=== PATIENT | male | born 1985 | race Caucasian/White ===

== ENCOUNTER 2021-01-26 00:59 | Emergency (ER) | payer OTHER, SELFPAY ==
--- NOTE | ~2021-01-26 | CT_ITS ---
EXAMINATION: CT HEAD WITHOUT CONTRAST CLINICAL INFORMATION: Headache, speech difficulties COMPARISON: None TECHNIQUE: Contiguous axial imaging was performed from the skull base to vertex without intravenous administration of contrast. This CT examination was performed using dose optimization techniques as appropriate, variously including the following: *Automated exposure control *Adjustment of mA and/or kV according to patient size (this includes techniques or standardized protocols for targeted exams where dose is matched to indication/reason for exam; i.e. extremities or head) *Use of iterative reconstruction technique DLP: 630 mGy-cm FINDINGS: There is no evidence of acute intracranial hemorrhage or territorial infarction. No abnormal mass effect or midline shift is seen. Shea to white matter differentiation is well preserved. No extra-axial fluid collections are identified. The ventricles are normal in size. There is no abnormal attenuation within the brain parenchyma. The osseous structures and soft tissues are normal. Small mucous retention cyst suspected in the right maxillary sinus. The mastoid air cells are well-aerated. CT/CT head/brain wo con IMPRESSION: No acute intracranial pathology.
[2021-01-26 01:10] VITALS: BP 118/80; PULSE 73; RESP 16; TEMP 36.6; O2SAT 100; BMI 17.7
--- NOTE | 2021-01-26 01:20 | PC.NURSE ---
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 Awaiting primary MD land.
--- NOTE | 2021-01-26 02:12 | ED_ITS ---
HPI - Headache General Chief Complaint: Headache Stated Complaint: Headache Time Seen by Provider: 01/26/21 02:11 Source: patient Mode of arrival: ambulatory History of Present Illness HPI Narrative: This is a 35-year-old male who is coming in from home with reports neuro symptoms that started on at approximately 9:30 a.m. while at work. He states that he experienced ?loss of vision bilaterally, garbled speech, numbness and tingling in bilateral hands as well as face/tongue and reports difficulty walking. Patient states that he was evaluated by the paramedics and that his symptoms had completely resolved by 1:00 p.m. in the afternoon on . At that time paramedics offered to take him to the hospital however he declined. Patient reports an intermittent headache since that time at bilateral temples and top of the head but this headache has responded well to [id number] aspirin. Patient endorses a he had a similar episode 2018 and at that time did not pursue evaluation in the emergency room either and followed up with his primary care provider but states that there was a limited exam at that time. Patient denies any significant past medical history for anxiety, migraines. Related Data Allergies Allergy/AdvReac Type Severity Reaction Status Date / Time No Known Allergies Allergy Unverified 01/26/21 01:18 Review of Systems Review of Systems: Pertinent positives and negatives as stated in HPI 10 point review of systems is otherwise negative. PMFSH Past Medical History Source: nursing notes reviewed Medical History No known health problems Social History Social History Advance Directives: No Advance Directives Information Provided: No Physical Exam Vital Signs: Vital Signs: Last Vital Signs Temp 98 F 01/26/21 01:10 Pulse 73 01/26/21 01:10 Resp 16 01/26/21 01:10 BP 118/80 01/26/21 01:10 Pulse Ox 100 01/26/21 01:10 Body Mass Index 17.7 VITAL SIGNS: Reviewed. GENERAL: Well developed, well nourished, in no acute distress. HEAD: Normocephalic/atraumatic, EYES: PERRLA, EOMI intact without pain, no nystagmus OROPHARYNX: no oral lesions noted, posterior pharynx clear NECK: Supple, no adenopathy LUNGS: Normal breath sounds. No adventitious sounds or accessory muscle use. SpO2<100> CARDIOVASCULAR: Regular rate and rhythm without noted murmurs ABDOMEN: Soft, non-tender, non-distended with bowel sounds. MUSCULOSKELETAL: No tenderness, deformities, or effusions noted on gross inspection. EXTREMITIES: No cyanosis, clubbing or edema. SKIN: Inspection of the skin reveals no rashes, ulcerations, jaundice, pallor, or petechiae. NEUROLOGIC: Alert and oriented x 4. Strength and sensation to light touch were grossly intact x 4, no facial asymmetry, no pronator drift, cerebellar testing is intact, cranial nerves 2-12 are grossly intact, speech is articulate, and no visual deficits at this time.. Course Course Course Narrative: 35-year-old male with history and clinical presentation suggestive anxiety/panic attack, however attempts to discussed with the patient further workup to ensure no underlying medical etiologies that may be contributing to his symptoms. Patient was reassured that his symptoms are inconsistent with stroke like symptoms given the bilaterality, but there are other conditions that may be present, however patient is declining lab work at this time. He was agreeable to follow through with a CT scan of the head and informed that his neurologic exam is otherwise benign. Patient is not currently having a headache at this time. Review CT of the head heels and impression of ?no acute intracranial pathology?. Patient was informed of findings and discharged with recommendations to follow- up with his primary care provider for further outpatient evaluation. Patient was cautioned that his primary care provider would likely want lab work completed as well. Discharge Plan Discharge Clinical Impression: Headache Patient Disposition: Home, Self-Care Instructions: General Headache (ED) Additional Instructions: 1. Tylenol 1000 mg, orally, every 6 hours as needed for headache. Do not exceed 4000 mg within 24 hours. 2. Ibuprofen 400 mg, orally with milk or food, every 6 hours as needed for headache. 3. Increase your water intake. 4. Please follow-up with your primary care provider in the next 2-3 days for re- evaluation and outpatient management of your symptoms. Return to the emergency department if you experience any acute worsening of symptoms. Referrals: Physician,Unknown [Primary Care Provider] - 2 days
--- NOTE | 2021-01-26 02:18 | PC.NURSE ---
at bedside for primary eval.
--- NOTE | 2021-01-26 02:45 | PC.NURSE ---
Pt ambulating to CT with a steady gait.
[2021-01-26 03:46] VITALS: BP 121/75; PULSE 73; RESP 16; O2SAT 100
== END 2021-01-26 03:57 | disposition home or self-care (01) ==
PROVIDERS: Emergency Provider Student in an Organized Health Care Education/Training Program
DX: R51.9 Headache, unspecified (principal)
CPT/HCPCS: 70450; 99284